=== PATIENT | female | born 1970 | race Hispanic/Latino ===

== ENCOUNTER → 2019-10-21 | Day surgery (SDC) | payer OTHER ==
[~2019-10-21] MED LIST: BIRTH CONTROL PO; BUPIVACAINE HCL 0.5% INJ 30 ML VIAL INJ ONE; CEFAZOLIN SOD 1 GM/NS 50ML 100 ML IV ONE; DEXAMETHASONE SOD PHOS INJ 4 MG/ML VIAL ONE; FENTANYL CITRATE/PF 100MCG/2 ML INJ ONE; KETOROLAC TROMETHAMINE 30 MG/ML VIAL ONE; LIDOCAINE HCL 2% LOCAL INJ 5 ML SDV VIAL INJ ONE; MIDAZOLAM HCL 2 MG/2 ML VIAL ONE; NEOSTIGMINE 1 MG/ML 10ML VIAL ONE; ONDANSETRON HCL INJ 2MG/ML 2ML 2 MG/ML VIAL ONE; PROPOFOL IV EMULSION 10 MG/ML 20 ML VIAL ONE; SEVOFLURANE INHAL SOLN 250 ML PEN BTL ONE; SUMATRIPTAN SUC25 MG PO
[2019-10-21 10:10] VITALS: BP 110/54
--- NOTE | 2019-10-21 11:58 | Operative Report ---
DATE OF PROCEDURE: 10/21/2019 SURGEON: Lou Frank DPM PREOPERATIVE DIAGNOSES: 1. Chronic plantar fasciotomy. 2. Posterior tibial tendon tear. 3. Posterior tibial tendon neuritis. POSTOPERATIVE DIAGNOSES: 1. Chronic plantar fasciotomy. 2. Posterior tibial tendon tear. 3. Posterior tibial tendon neuritis. PROCEDURES: 1. Endoscopic plantar fasciotomy with removal of bone spur, right foot. 2. Posterior tibial tendon repair, right foot. 3. Tarsal tunnel release, right foot. ANESTHESIA: General anesthetic. HEMOSTASIS: Pneumatic thigh tourniquet at 350 mmHg. ESTIMATED BLOOD LOSS: Less than 10 mL. MATERIALS: Human allograft 2 x 4. COMPLICATIONS: None. CONDITION: Stable. PROCEDURE IN DETAIL: Under mild sedation, the patient was brought to the operating room, placed on the operating table in supine position. Following IV sedation, anesthesia was obtained with a general anesthetic. At this point, the right foot was scrubbed, prepped, and draped in the usual aseptic manner. The pneumatic thigh tourniquet was inflated to 250 mmHg and the leg was lowered to the table. EPF with bone spur removal. Attention was directed to the medial aspect of the right foot, where a linear incision was made overlying the incision of the bone spur. The incision was deepened down to the level of the fascia, and the deep fascia was then isolated. With the camera, medial, central, and lateral bands were visualized utilizing a fascia blade. Medial and central bands were transected leaving the lateral band intact. All instruments were removed. The area was flushed with copious amount of normal sterile saline solution. Next one is posterior tibial tendon repair and tarsal tunnel release. Attention was directed to the medial aspect of the right foot, where a linear incision was made overlying the posterior tibial tendon. The incision was deepened via sharp and blunt dissection, taking care to retract neurovascular structures as necessary. Before this procedure, the tourniquet was taken down. At this point, there was noted to be large amount of tortuous veins to the area. The nerve was encroaching the tarsal tunnel. Utilizing blunt dissection, the tarsal tunnel was released. At this point, the tendon was released. There was noted to be a small tear to the area. Utilizing a human allograft was then inserted in order to help heal the tear. At this point, it was noted that most of her pain clinically was probably coming from the tarsal tunnel compression. The tarsal tunnel had been released. The area was then flushed with copious amount of normal sterile saline solution. The area was then closed, closing the deepest layer with 3-0 Vicryl, 4-0 Vicryl, and 4-0 nylon. Clean dressing was applied consisting of Adaptic ointment, 4x4's, Kerlix, Webril was applied. A posterior splint was applied and was secured utilizing an Jian bandage. The patient tolerated the procedure and anesthesia well without complications and was transported to recovery room with vital signs stable and vascular status intact to the feet. The patient discharged home when she meets criteria. She was given instructions to be nonweightbearing to ice and elevate the foot while at rest. Follow up with me in the office and to call the office if any questions, concerns, or new problems arise. SERGEY Matthews/RANI /[id number]
== END | disposition home or self-care (01) ==
LOC: OR 05:35
PROVIDERS: ATTEND Podiatrist Foot & Ankle Surgery
DX: M72.2 Plantar fascial fibromatosis (principal); M25.774 Osteophyte, right foot; M79.671 Pain in right foot; Z01.812 Encounter for preprocedural laboratory examination; Z11.59 Encounter for screening for other viral diseases
CPT/HCPCS: 27658; 28035; 29893; 81025; J0690; J1100; J1885; J2001; J2250; J2405; J2704; J2710; J3010; Q4150; U0002; 76000

== ENCOUNTER → 2023-12-19 | Day surgery (SDC) | payer OTHER ==
[2023-12-12 16:35] LABS: ANION GAP 12.8 mmol/L (8-16); CALCIUM 9.6 mg/dL (8.4-10.2); CREATININE, SERUM 0.81 mg/dL (0.57-1.11); POTASSIUM 3.8 mmol/L (3.5-5.1)
[~2023-12-19] MED LIST changes: +ACETAMINOPHEN 1000 MG/100 ML 100 ML IV ONE; -BUPIVACAINE HCL 0.5% INJ 30 ML VIAL INJ ONE; -CEFAZOLIN SOD 1 GM/NS 50ML 100 ML IV ONE; +CLINDAMYCIN 600MG / 50ML 50 ML IV ONE; +DEXAMETHASONE SOD PHOS INJ 4 MG/ML SDV ONE; -DEXAMETHASONE SOD PHOS INJ 4 MG/ML VIAL ONE; +MAXALT10 MG; -MIDAZOLAM HCL 2 MG/2 ML VIAL ONE; +NARATRIPTAN HC2.5 MG; -NEOSTIGMINE 1 MG/ML 10ML VIAL ONE; +SUCCINYLCHOLINE CHLORIDE 20 MG/ML 10ML VIAL ONE
[2023-12-19] MEDS: LACTATED RINGER'S 1,000 ML ONE (11:18)
[2023-12-19 14:49] VITALS: TEMP 98.7
[2023-12-19 16:05] VITALS: BP 115/67; PULSE 70; RESP 18; O2SAT 97
== END | disposition home or self-care (01) ==
LOC: OR 10:54
PROVIDERS: ATTEND Podiatrist Foot & Ankle Surgery
DX: M20.12 Hallux valgus (acquired), left foot (principal); M20.5X2 Other deformities of toe(s) (acquired), left foot; E11.9 Type 2 diabetes mellitus without complications; E66.01 Morbid (severe) obesity due to excess calories; G89.29 Other chronic pain; M19.90 Unspecified osteoarthritis, unspecified site; Z88.0 Allergy status to penicillin; Z01.810 Encounter for preprocedural cardiovascular examination; Z01.812 Encounter for preprocedural laboratory examination; Z79.85 Long-term (current) use of injectable non-insulin antidiabetic drugs; Z79.899 Other long term (current) drug therapy
CPT/HCPCS: 28299; 36415; 76000; 80048; 81025; 93005; C1713; C1762; J0131; J0330; J1100; J1885; J2003; J2405; J2704; J3010; J7121

== ENCOUNTER → 2024-03-17 | Day surgery (SDC) | payer OTHER ==
[~2024-03-17] MED LIST changes: +CELEBREX200 MG PO; -CLINDAMYCIN 600MG / 50ML 50 ML IV ONE; +FAMOTIDINE 20 MG/2 ML VIAL IV ONE; +METHYLPREDNISOLO4 M1 PO; +MIDAZOLAM HCL 2 MG/2 ML VIAL ONE; +MOUNJARO5 MG/0.5 M; -SUCCINYLCHOLINE CHLORIDE 20 MG/ML 10ML VIAL ONE
[2024-03-17] MEDS: LACTATED RINGER'S 1,000 ML ONE (06:07)
[2024-03-17 07:34] VITALS: TEMP 98.9
[2024-03-17] MEDS: TRAMADOL HCL 50 MG TAB ONE (08:23)
[2024-03-17 08:25] VITALS: BP 112/62; PULSE 72; RESP 15; O2SAT 97
[2024-03-17] MEDS: ONDANSETRON HCL INJ 2MG/ML 2ML 2 MG/ML VIAL ONE (08:44)
== END | disposition home or self-care (01) ==
LOC: OR 05:22
PROVIDERS: ATTEND Specialist
DX: M65.311 Trigger thumb, right thumb (principal); E11.9 Type 2 diabetes mellitus without complications; R51.9 Headache, unspecified; M06.9 Rheumatoid arthritis, unspecified; M19.90 Unspecified osteoarthritis, unspecified site; Z88.0 Allergy status to penicillin; Z79.85 Long-term (current) use of injectable non-insulin antidiabetic drugs; Z79.899 Other long term (current) drug therapy; Z68.36 Body mass index [BMI] 36.0-36.9, adult
CPT/HCPCS: 26055; 81025; J0131; J0690; J1100; J1885; J2003; J2250; J2405; J2704; J3010; J7121

== ENCOUNTER 2024-04-02 14:00 | Outpatient (RCR) | payer OTHER ==
[~2024-04-02 14:00] MED LIST changes: -ACETAMINOPHEN 1000 MG/100 ML 100 ML IV ONE; -DEXAMETHASONE SOD PHOS INJ 4 MG/ML SDV ONE; -FAMOTIDINE 20 MG/2 ML VIAL IV ONE; -FENTANYL CITRATE/PF 100MCG/2 ML INJ ONE; -KETOROLAC TROMETHAMINE 30 MG/ML VIAL ONE; -LIDOCAINE HCL 2% LOCAL INJ 5 ML SDV VIAL INJ ONE; -MIDAZOLAM HCL 2 MG/2 ML VIAL ONE; -ONDANSETRON HCL INJ 2MG/ML 2ML 2 MG/ML VIAL ONE; -PROPOFOL IV EMULSION 10 MG/ML 20 ML VIAL ONE; -SEVOFLURANE INHAL SOLN 250 ML PEN BTL ONE
== END 2024-04-04 ==
LOC: PT 14:00
PROVIDERS: ATTEND Podiatrist Foot & Ankle Surgery
DX: M79.672 Pain in left foot (principal)

== ENCOUNTER 2024-04-30 10:00 | Outpatient (RCR) | payer OTHER | END 2024-05-02 | LOC: PT 10:00 | PROVIDERS: ATTEND Podiatrist Foot & Ankle Surgery | DX: M79.672 Pain in left foot (principal) ==

== ENCOUNTER 2024-05-23 09:00 | Outpatient (RCR) | payer OTHER | END 2024-06-02 | LOC: PT 09:00 | PROVIDERS: ATTEND Podiatrist Foot & Ankle Surgery | DX: M79.672 Pain in left foot (principal) ==

== ENCOUNTER 2024-06-11 12:48 | Outpatient (RCR) | payer OTHER | END 2024-07-02 | LOC: PT 12:48 | PROVIDERS: ATTEND Specialist | DX: M19.09 Primary osteoarthritis, other specified site (principal) ==